=== PATIENT | male | born 1985 | race Two or more races ===

== ENCOUNTER 2024-06-10 03:51 | Emergency (ER) | payer OTHER ==
[~2024-06-10] VITALS: Ht 165.1 cm; Wt 77.1 kg
[2024-06-10 04:23] VITALS: BP 133/87; O2SAT 99
[2024-06-10] MEDS ORDERED: TAMSULOSIN HCL 0.4 MG CAP PO STA (04:53)
[2024-06-10] MEDS ORDERED: KETOROLAC TROMETHAMINE 30 MG VIAL IV STA (04:53)
[2024-06-10] MEDS ORDERED: PROMETHAZINE HCL 50 MG/ML AMPUL IM STA (04:53)
[2024-06-10] MEDS ORDERED: SODIUM CHLORIDE 0.45 % 1,000 ML IV ONE (05:00)
[2024-06-10 05:38] LABS: HEMOGLOBIN 15.1 g/dL (13-16.00); MEAN CELL VOLUME 89.2 fL (80.0-100.00); MEAN CORPUSCULAR HEMOGLOBIN 30.6 pg (27.00-32.0); MEAN CORPUSCULAR HGB CONC 34.2 g/dl (32.0-36.0); PLATELET COUNT 242 K/uL (150-450); RED BLOOD COUNT 4.93 M/uL (4.00-6.00)
[2024-06-10 06:00] LABS: CALCIUM 9.3 mg/dL (8.5-10.1); CREATININE SERUM 1.17 mg/dL (0.70-1.30); GFR 69.4; POTASSIUM 4.09 mEq/L (3.5-5.1)
[2024-06-10 07:34] LABS: URINE APPEARANCE Turbid; URINE BILIRRUBIN Negative (NEGATIVE); URINE BLOOD Large; URINE COLOR Dark Yellow; URINE GLUCOSE Negative (NEGATIVE); URINE KETONE Trace (NEGATIVE); URINE LEUKOCYTE Small; URINE NITRATE Negative
[2024-06-10 07:39] LABS: URINE BACTERIA 42.8 uL (0.0-1933); URINE CAST 2.74 uL (0.0-1.40); URINE EPITHELIAL CELLS 11.4 uL (0.0-38.8); URINE RBC 1388.2 uL (0.0-20.8); URINE WBC 40.8 uL (0.0-23.2)
[2024-06-10 07:40] LABS: URINE PROTEIN 100 (NEGATIVE)
[2024-06-10] MEDS ORDERED: TAMS0.4C PO (08:32)
[2024-06-10] MEDS ORDERED: KETO10TA2 PO (08:32)
== END 2024-06-10 08:57 ==
LOC: ER 03:53
PROVIDERS: General Practice
DX: N23 Unspecified renal colic (principal)